=== PATIENT | male | born 1950 | race Caucasian/White ===

== ENCOUNTER 2017-07-02 10:10 | Emergency (ER) | payer MEDICARE ==
[~2017-07-02] VITALS: Ht 172.7 cm; Wt 81.8 kg
[2017-07-02] MEDS ORDERED: DiphenhydrAMINE HCL 25 MG CAPSULE PO ONE (13:30)
[2017-07-02 13:45] VITALS: BP 143/77
== END 2017-07-02 13:50 | disposition home or self-care (01) ==
LOC: EMS 10:13
DX: R21 Rash and other nonspecific skin eruption (principal)
CPT/HCPCS: 99283

== ENCOUNTER 2019-04-03 07:44 | Emergency (ER) | payer MEDICARE ==
[~2019-04-03] VITALS: Ht 167.6 cm; Wt 79.5 kg
[2019-04-03] MEDS ORDERED: KETOROLAC TROMETHAMINE 60 MG/2 ML VIAL IM ONE (08:30)
[2019-04-03 08:33] VITALS: BP 150/90
== END 2019-04-03 08:42 | disposition home or self-care (01) ==
LOC: EMS 07:45
DX: G89.29 Other chronic pain (principal); M25.551 Pain in right hip
CPT/HCPCS: 96372; 99283; J1885

== ENCOUNTER 2019-04-04 17:33 | Emergency (ER) | payer MEDICARE ==
[~2019-04-04] VITALS: Ht 167.6 cm; Wt 79.5 kg
[2019-04-04 20:30] VITALS: BP 151/72
== END 2019-04-04 20:44 | disposition home or self-care (01) ==
LOC: EMS 17:35
DX: M79.661 Pain in right lower leg (principal)
CPT/HCPCS: 93971

== ENCOUNTER 2019-04-13 10:34 | Emergency (ER) | payer MEDICARE, MEDICAID ==
[~2019-04-13] VITALS: Ht 172.7 cm; Wt 86.0 kg
[2019-04-13] MEDS ORDERED: ACET1TAB12 PO (10:46)
[2019-04-13] MEDS ORDERED: IBUP-2070 PO (10:46)
[2019-04-13] MEDS ORDERED: CYCL10 PO (10:46)
[2019-04-13] MEDS ORDERED: ACETAMINOPHEN 500 MG TABLET PO ONE (11:45)
[2019-04-13 12:26] VITALS: BP 132/80
== END 2019-04-13 12:29 | disposition home or self-care (01) ==
LOC: EMS 10:36
DX: M54.31 Sciatica, right side (principal)